=== PATIENT | female | born 2000 | race Two or more races ===

== ENCOUNTER 2018-12-12 20:47 | Emergency (ER) | payer OTHER ==
[~2018-12-12] VITALS: Ht 154.9 cm; Wt 55.8 kg
[2018-12-12 21:03] VITALS: BP 120/73
== END 2018-12-12 21:26 | disposition home or self-care (01) ==
LOC: ER 20:52
DX: L50.9 Urticaria, unspecified (principal); Z60.2 Problems related to living alone

== ENCOUNTER 2020-05-01 14:20 | Inpatient (IN) | payer BC, MEDICAID, OTHER ==
[~2020-05-01] VITALS: Ht 154.9 cm; Wt 58.5 kg
[2020-05-01] MEDS ORDERED: IV NS 0.9% 1,000 ML BAG IV ONE (17:30)
[2020-05-01] MEDS ORDERED: ONDANSETRON HCL/PF 4 MG/2 ML VIAL IVP ONE (17:30)
--- NOTE | 2020-05-01 17:47 | NUR ---
seen by ER with orders for IVF and anti emetics
--- NOTE | 2020-05-01 17:48 | NUR ---
US at bedside
[2020-05-01] MEDS ORDERED: ONDANSETRON HCL/PF 4 MG/2 ML VIAL ONE ×2 (17:51→20:03)
[2020-05-01 18:01] LABS: BASOPHILS % (AUTO) 0.3 % (0.0-2.0); EOSINOPHILS % (AUTO) 0.1 % (0.0-6.0); HEMATOCRIT 39 % (33-45); LYMPHOCYTES # (AUTO) 5.2 /CMM (0.8-4.8); LYMPHOCYTES % (AUTO) 69.2 % (20.0-44.0); MEAN CORPUSCULAR HGB CONC 34 g/dl (31.0-36.0); MEAN CORPUSCULAR VOLUME 89 fL (82-100); MONOCYTES # (AUTO) 0.3 /CMM (0.1-1.30); MONOCYTES % (AUTO) 4.4 % (2.0-12.0); PLATELET COUNT (AUTO) 124 /CMM (150-450); RED BLOOD CELL COUNT(AUTO) 4.35 MIL/uL (4.0-5.2); WHITE BLOOD COUNT (AUTO) 7.5 K/uL (4.3-11.0)
[2020-05-01 18:08] LABS: CALCIUM, SERUM 8.8 mg/dL (8.5-10.1); CREATININE 0.6 mg/dL (0.6-1.3); POTASSIUM 3.7 mmol/L (3.5-5.1)
[2020-05-01 18:29] LABS: ALBUMIN 3.5 g/dL (3.4-5.0); BILIRUBIN,DIRECT 3.8 mg/dL (0.0-0.2); TOTAL PROTEIN, SERUM 6.8 g/dL (6.4-8.2)
[2020-05-01] MEDS ORDERED: MORPHINE SULFATE INJ 2 MG/ML DISP.SYRIN IV ONE (18:30)
[2020-05-01] MEDS ORDERED: MORPHINE SULFATE INJ 4 MG/ML DISP.SYRIN ONE (18:33)
--- NOTE | 2020-05-01 19:42 | NUR ---
CALLED FOR COVID SWABS.
--- NOTE | 2020-05-01 19:50 | NUR ---
SPOKE TO LAB REGARDING COVID SWABS, STATED THEY HAVE BEEN COLLECTED.
[2020-05-01 20:08] LABS: BILIRUBIN,URINE LARGE (NEGATIVE); COLOR,URINE YELLOW (YELLOW); LEUKOCYTE ESTERASE ,URINE Negative (NEGATIVE); NITRITE, URINE Negative (NEGATIVE); PH,URINE 6.5 (5.0-8.0); PROTEIN,URINE Negative (NEGATIVE); UGLUCOSE Negative (NEGATIVE)
[2020-05-01 20:23] LABS: BACTERIA,URINE Few /HPF (None Seen); RBC,URINE 0-2 /HPF (0-2); WBC,URINE 0-2 /HPF (0-3)
[2020-05-01] MEDS ORDERED: ONDANSETRON HCL/PF 4 MG/2 ML VIAL IV ONE (20:30)
[2020-05-01 20:43] LABS: BAND % (MANUAL) 6 % (0.0-5.0); EOSINOPHILS % (MANUAL) 1 % (0-4); LYMPHOCYTES % (MANUAL) 46 % (16-48); MONOCYTES % (MANUAL) 13 % (0-11.0); NEUTROPHILS % (MANUAL) 29 (42-76); REACTIVE LYMPHOCYTES 5 % (0-0)
[2020-05-01 20:57] LABS: MONOTEST NEGATIVE (NEGATIVE)
[2020-05-01 21:15] LABS: ACETAMINOPHEN 0 ug/ml (10-30)
[2020-05-02] MEDS ORDERED: ZOLPIDEM TARTRATE 5 MG TABLET PO PRN (02:00)
[2020-05-02] MEDS ORDERED: ACETAMINOPHEN 325 MG TABLET PO PRN (02:00)
[2020-05-02] MEDS ORDERED: MORPHINE SULFATE INJ 2 MG/ML DISP.SYRIN IV PRN (02:00)
[2020-05-02] MEDS ORDERED: MAGNESIUM HYDROXIDE 30 ML UDC PO PRN (02:00)
[2020-05-02] MEDS ORDERED: HYDROCODONE/APAP 5/325MG TABLET PO PRN (02:00)
[2020-05-02] MEDS ORDERED: ONDANSETRON HCL/PF 4 MG/2 ML VIAL IVP PRN (02:00)
[2020-05-02] MEDS: IV NS 0.9% 1,000 ML IV PRN ×2 (02:45→14:46)
--- NOTE | 2020-05-02 02:50 | NUR ---
PT NOTED ASLEEP, PROVIDED WITH BLANKETS AND PILLOW. VSS.
--- NOTE | 2020-05-02 04:32 | NUR ---
PT REMAINS ASLEEP, VSS.
--- NOTE | 2020-05-02 06:18 | NUR ---
PT REMAINS ASLEEP, VSS. PROVIDED WITH BLANKETS.
--- NOTE | 2020-05-02 07:28 | NUR ---
REPROT GIVEN TO AQUILINO BEDOLLA FOR BARBARA
[2020-05-02] MEDS ORDERED: PANTOPRAZOLE 40 MG VIAL IV SCH (09:00)
[2020-05-02] MEDS ORDERED: PANTOPRAZOLE 40 MG VIAL ONE (09:16)
--- NOTE | 2020-05-02 09:35 | NUR ---
PATIENT A/OX4, BREATHING EVEN AND UNLABORED, DENIES NAUSEA AND VOMITING AT THIS TIME.
--- NOTE | 2020-05-02 12:57 | NUR ---
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
[2020-05-02 13:44] LABS: CALCIUM, SERUM 8.2 mg/dL (8.5-10.1); CREATININE 0.7 mg/dL (0.6-1.3)
[2020-05-02 13:50] LABS: ALBUMIN 3.1 g/dL (3.4-5.0); TOTAL PROTEIN, SERUM 6.3 g/dL (6.4-8.2)
[2020-05-02 14:09] LABS: BASOPHILS # (AUTO) 0.1 /CMM (0.0-0.2); BASOPHILS % (AUTO) 0.5 % (0.0-2.0); HEMATOCRIT 37 % (33-45); HEMOGLOBIN 12.4 g/dL (11.5-14.8); LYMPHOCYTES # (AUTO) 6.5 /CMM (0.8-4.8); LYMPHOCYTES % (AUTO) 69.2 % (20.0-44.0); MEAN CORPUSCULAR HGB CONC 33 g/dl (31.0-36.0); MEAN CORPUSCULAR VOLUME 90 fL (82-100); MONOCYTES # (AUTO) 0.4 /CMM (0.1-1.30); MONOCYTES % (AUTO) 4.4 % (2.0-12.0); NEUTROPHILS # (AUTO) 2.4 /CMM (1.8-8.9); NEUTROPHILS % (AUTO) 25.9 % (43.0-81.0); PLATELET COUNT (AUTO) 132 /CMM (150-450); RED BLOOD CELL COUNT(AUTO) 4.11 MIL/uL (4.0-5.2); WHITE BLOOD COUNT (AUTO) 9.5 K/uL (4.3-11.0)
--- NOTE | 2020-05-02 15:31 | NUR ---
DR. PEREZ SPEAKING WITH PT.
--- NOTE | 2020-05-02 16:34 | NUR ---
GIO MADE AWARE OF DR. PEREZ'S RECOMMENDATIONS.
[2020-05-02 16:37] LABS: BAND % (MANUAL) 2 % (0.0-5.0); EOSINOPHILS % (MANUAL) 2 % (0-4); LYMPHOCYTES % (MANUAL) 40 % (16-48); MONOCYTES % (MANUAL) 7 % (0-11.0); NEUTROPHILS % (MANUAL) 48 (42-76); REACTIVE LYMPHOCYTES 1 % (0-0)
--- NOTE | 2020-05-02 19:28 | NUR ---
AWAITING FOR DISCHARGE PAPERS.
--- NOTE | 2020-05-02 19:39 | NUR ---
IV removed. Catheter intact and site benign. Pressure and 4x4 applied to site. No bleeding noted.
[2020-05-02 19:40] VITALS: BP 127/72
--- NOTE | 2020-05-02 19:40 | NUR ---
Patient discharged to home in stable condition. Written and verbal after care instructions given. Patient verbalizes understanding of instruction. Pt denies pain, ambulating with steady gait, vss.
== END 2020-05-02 19:41 | disposition home or self-care (01) ==
LOC: ER 14:26 → OBSVTOIN 05-02 00:28 → TRANSITION 05-02 00:28
PROVIDERS: ADMIT Nurse Practitioner Acute Care; ATTEND Nurse Practitioner Acute Care
DX: B17.9 Acute viral hepatitis, unspecified (principal); D69.6 Thrombocytopenia, unspecified; D72.825 Bandemia; E78.00 Pure hypercholesterolemia, unspecified; Z87.440 Personal history of urinary (tract) infections; Z20.828 Contact with and (suspected) exposure to other viral communicable diseases
CPT/HCPCS: 36415; 71045-TC; 76705-TC; 80048-TC; 80053-TC; 80061-TC; 80074; 80076-TC; 81001; 83615-TC; 83690-TC; 84703-TC; 85025-TC; 85045-TC; 85730-TC; 86308-TC; 87081-TC; C9113; C9803; G0378; J2270; J2405; J7030; U0003

== ENCOUNTER 2020-10-19 09:41 | Emergency (ER) | payer MEDICAID ==
[~2020-10-19] VITALS: Ht 154.9 cm; Wt 54.4 kg
[2020-10-19] MEDS ORDERED: SULFAMETH/TRIMETH 800/160 MG 1 UDTAB TABLET ONE (10:00)
[2020-10-19] MEDS ORDERED: SULFAMETH/TRIMETH 800/160 MG 1 UDTAB TABLET PO ONE (10:00)
[2020-10-19 10:06] LABS: BILIRUBIN,URINE NEGATIVE (NEGATIVE); COLOR,URINE YELLOW (YELLOW); LEUKOCYTE ESTERASE ,URINE NEGATIVE (NEGATIVE); NITRITE, URINE NEGATIVE (NEGATIVE); PROTEIN,URINE NEGATIVE (NEGATIVE); UGLUCOSE NEGATIVE (NEGATIVE); UROBILINOGEN,URINE 0.2 EU/dL (0.2)
[2020-10-19 10:35] LABS: BASOPHILS % (AUTO) 0.9 % (0.0-2.0); EOSINOPHILS % (AUTO) 1.7 % (0.0-6.0); HEMATOCRIT 38 % (33-45); HEMOGLOBIN 13.1 g/dL (11.5-14.8); LYMPHOCYTES # (AUTO) 1.1 /CMM (0.8-4.8); LYMPHOCYTES % (AUTO) 24.7 % (20.0-44.0); MEAN CORPUSCULAR HGB CONC 34 g/dl (31.0-36.0); MEAN CORPUSCULAR VOLUME 87 fL (82-100); MONOCYTES # (AUTO) 0.2 /CMM (0.1-1.30); MONOCYTES % (AUTO) 5.4 % (2.0-12.0); NEUTROPHILS % (AUTO) 67.3 % (43.0-81.0); PLATELET COUNT (AUTO) 283 /CMM (150-450); RED BLOOD CELL COUNT(AUTO) 4.41 MIL/uL (4.0-5.2); WHITE BLOOD COUNT (AUTO) 4.5 K/uL (4.3-11.0)
[2020-10-19 10:53] LABS: CALCIUM, SERUM 8.3 mg/dL (8.5-10.1); CREATININE 0.5 mg/dL (0.6-1.3); POTASSIUM 3.9 mmol/L (3.5-5.1)
[2020-10-19 10:55] LABS: BACTERIA,URINE Few /HPF (None Seen); MUCUS,URINE Moderate /LPF (None Seen); SQUAMOUS EPITHELIAL CELL,UR Moderate /HPF (None Seen); WBC,URINE 0-2 /HPF (0-3)
[2020-10-19] MEDS ORDERED: SULF1TAB48 PO (11:13)
[2020-10-19 11:19] VITALS: BP 114/77
--- NOTE | 2020-10-19 11:19 | NUR ---
PATIENT A/OX4, BREATHING EVEN AND UNLABORED, NO SOB NOTED. DENIES PAIN AT THIS TIME. COPIES OF LAB RESULTS PROVIDED. Patient discharged to home in stable condition. Written and verbal after care instructions given. Patient verbalizes understanding of instruction.
== END 2020-10-19 11:20 | disposition home or self-care (01) ==
LOC: ER 09:50
DX: N12 Tubulo-interstitial nephritis, not specified as acute or chronic (principal); R11.2 Nausea with vomiting, unspecified; Z60.2 Problems related to living alone
CPT/HCPCS: 36415; 80048-TC; 81001; 84703-TC; 85025-TC

== ENCOUNTER 2020-12-14 12:31 | Emergency (ER) | payer MEDICAID ==
[~2020-12-14] VITALS: Ht 154.9 cm; Wt 54.9 kg
[~2020-12-14 12:31] MED LIST: SULF1TAB48 PO
--- NOTE | 2020-12-14 13:39 | NUR ---
BIBS FROM HOME TO ER BED 7. AAOX4. NOT IN RESP DISTRESS. AMBULATORY. CAME IN FOR DIARRHEA, NAUSEA AND CANT KEEP FOOD DOWN FOR THE PAST 3 DAYS. MD WAS AT THE BEDSIDE FOR EVAL.
--- NOTE | 2020-12-14 13:43 | NUR ---
URINE SENT TO LAB
[2020-12-14 13:52] LABS: BILIRUBIN,URINE Negative (NEGATIVE); COLOR,URINE YELLOW (YELLOW); LEUKOCYTE ESTERASE ,URINE Negative (NEGATIVE); NITRITE, URINE Negative (NEGATIVE); PROTEIN,URINE Negative (NEGATIVE); UGLUCOSE Negative (NEGATIVE); UROBILINOGEN,URINE 0.2 EU/dL (0.2)
[2020-12-14 14:04] LABS: BACTERIA,URINE Rare /HPF (None Seen); WBC,URINE 0-2 /HPF (0-3)
[2020-12-14] MEDS ORDERED: ONDA4TAB5 PO (14:16)
[2020-12-14] MEDS ORDERED: LOPE-195 PO (14:16)
[2020-12-14 14:40] VITALS: BP 107/3
--- NOTE | 2020-12-14 14:40 | NUR ---
Patient discharged to home in stable condition. Written and verbal after care instructions given. Patient verbalizes understanding of instruction. Pt ambulatory with a steady gait
== END 2020-12-14 14:41 | disposition home or self-care (01) ==
LOC: ER 12:57
DX: R11.2 Nausea with vomiting, unspecified (principal); R19.7 Diarrhea, unspecified; Z79.899 Other long term (current) drug therapy
CPT/HCPCS: 81001; 84703-TC

== ENCOUNTER 2021-01-21 13:52 | Emergency (ER) | payer MEDICAID ==
[~2021-01-21] VITALS: Ht 154.9 cm; Wt 55.8 kg
[~2021-01-21 13:52] MED LIST changes: +LOPE-195 PO; +ONDA4TAB5 PO
--- NOTE | 2021-01-21 14:18 | NUR ---
DR. WYNN AT BS FOR EVAL.
[2021-01-21] MEDS ORDERED: ONDANSETRON HCL/PF 4 MG/2 ML VIAL ONE (14:25)
--- NOTE | 2021-01-21 14:28 | NUR ---
BIB SELF C/O RUQ ABDOMINAL PAIN AND VOMITING STARTED THIS MORNING. PT AAOX4, VSS. RR EVEN & UNLABORED. DENIES CP, SOB, DIZZINESS AT THIS TIME. MEDICATED ORDERED, PT KRISTIE WELL. WILL CONT TO MONITOR.
--- NOTE | 2021-01-21 14:29 | NUR ---
[facility] AT FOR EVAL.
[2021-01-21] MEDS ORDERED: ONDANSETRON HCL/PF 4 MG/2 ML VIAL IVP ONE (14:30)
[2021-01-21 14:36] LABS: BILIRUBIN,URINE Negative (NEGATIVE); COLOR,URINE YELLOW (YELLOW); LEUKOCYTE ESTERASE ,URINE Negative (NEGATIVE); NITRITE, URINE Negative (NEGATIVE); PH,URINE 8.5 (5.0-8.0); PROTEIN,URINE Trace mg/dl (NEGATIVE); UGLUCOSE Negative (NEGATIVE)
[2021-01-21 14:37] LABS: BACTERIA,URINE Few /HPF (None Seen); SQUAMOUS EPITHELIAL CELL,UR Few /HPF (None Seen); WBC,URINE 0-2 /HPF (0-3)
[2021-01-21 15:54] LABS: BASOPHILS % (AUTO) 0.4 % (0.0-2.0); HEMATOCRIT 42 % (33-45); LYMPHOCYTES # (AUTO) 1.4 K/uL (0.8-4.8); LYMPHOCYTES % (AUTO) 16.7 % (20.0-44.0); MEAN CORPUSCULAR HGB CONC 34 g/dl (31.0-36.0); MEAN CORPUSCULAR VOLUME 87 fL (82-100); MONOCYTES # (AUTO) 0.5 K/uL (0.1-1.30); MONOCYTES % (AUTO) 5.6 % (2.0-12.0); NEUTROPHILS # (AUTO) 6.2 K/uL (1.8-8.9); NEUTROPHILS % (AUTO) 76.3 % (43.0-81.0); PLATELET COUNT (AUTO) 341 K/uL (150-450); RED BLOOD CELL COUNT(AUTO) 4.77 MIL/uL (4.0-5.2); WHITE BLOOD COUNT (AUTO) 8.2 K/uL (4.3-11.0)
[2021-01-21 17:29] LABS: CREATININE 0.5 mg/dL (0.6-1.3); POTASSIUM 3.7 mmol/L (3.5-5.1)
[2021-01-21 17:42] LABS: ALBUMIN 4.5 g/dL (3.4-5.0); BILIRUBIN,DIRECT 0.3 mg/dL (0.0-0.2); BILIRUBIN,TOTAL 1.7 mg/dL (0.2-1.0)
--- NOTE | 2021-01-21 17:48 | NUR ---
PT SITTING UP, USING CELLPHONE. DENIES CP, SOB, DIZZINESS, N/V AT THIS TIME. WILL CONT TO MONITOR.
[2021-01-21] MEDS ORDERED: ONDA4TAB5 PO (18:53)
--- NOTE | 2021-01-21 18:58 | NUR ---
PATIENT A/OX4, BREATHING EVEN AND UNLABORED, NO SOB NOTED. NEEDS ATTENDED. IV removed. Catheter intact and site benign. Pressure and 4x4 applied to site. No bleeding noted.Patient discharged to home in stable condition. Written and verbal after care instructions given. Patient verbalizes understanding of instruction.
[2021-01-21 18:59] VITALS: BP 111/74
--- NOTE | 2021-01-21 18:59 | NUR ---
WAITING FOR COVID SWAB
--- NOTE | 2021-01-21 19:15 | NUR ---
IV removed. Catheter intact and site benign. Pressure and 4x4 applied to site. No bleeding noted. Patient discharged to home in stable condition. Written and verbal after care instructions given. Patient verbalizes understanding of instruction.
== END 2021-01-21 19:16 | disposition home or self-care (01) ==
LOC: ER 13:58
DX: R10.13 Epigastric pain (principal); R11.2 Nausea with vomiting, unspecified; Z20.822 Contact with and (suspected) exposure to COVID-19
CPT/HCPCS: 36415; 71045; 74176; 76705; 80048; 80076; 81001; 83605; 83690; 84703; 85025; 87040 ×2; 87086; 87186; 87426; 96374; 99285; C9803; J2405